=== PATIENT | male | born 1960 | race Caucasian/White ===

== ENCOUNTER 2020-11-03 14:19 | Outpatient (CLI) | payer OTHER | END 2020-11-03 16:19 | disposition home or self-care (01) | LOC: PPH VACUNA 14:19 | DX: Z23 Encounter for immunization (principal) ==

== ENCOUNTER 2021-05-11 10:47 | Outpatient (CLI) | payer OTHER | END 2021-05-11 10:49 | disposition home or self-care (01) | LOC: PPH VACUNA 10:47 | PROVIDERS: ATTEND Emergency Medicine Pediatric Emergency Medicine | DX: Z23 Encounter for immunization (principal) ==

== ENCOUNTER 2021-11-07 08:00 | Outpatient (CLI) | payer OTHER | END 2021-11-07 08:30 | disposition home or self-care (01) | LOC: PPH VACUNA 08:00 | PROVIDERS: ATTEND Emergency Medicine Pediatric Emergency Medicine | DX: Z23 Encounter for immunization (principal) ==

== ENCOUNTER 2022-04-17 10:44 | Outpatient (CLI) | payer OTHER | END 2022-04-17 10:45 | disposition home or self-care (01) | LOC: LAB 10:44 | PROVIDERS: ATTEND Urology | DX: R97.20 Elevated prostate specific antigen [PSA] (principal) ==

== ENCOUNTER 2022-10-02 14:38 | Outpatient (CLI) | payer OTHER | END 2022-10-02 14:57 | disposition home or self-care (01) | LOC: RAD 14:38 | PROVIDERS: ATTEND Physical Medicine & Rehabilitation | DX: M54.59 Other low back pain (principal); M54.2 Cervicalgia ==